=== PATIENT | male | born 1980 | race Caucasian/White ===

== ENCOUNTER → 2024-11-27 | Day surgery (SDC) | payer OTHER ==
[~2024-11-27] MED LIST: FERRITIN PO; FISH OIL 1,001000 M1 PO; GLUCAGON FOR INJ 1 MG VIAL ONE; HYOSCYAMINE SULFATE 0.5 MG/ML INJ ONE; KETAMINE HCL INJ 50 MG/ML 10 ML VIAL ONE; LIDOCAINE HCL 2% LOCAL INJ 5 ML SDV VIAL INJ ONE; MULTI-VITAMIN1 EACH PO; OLMESARTAN MEDO40 MG PO; PROPOFOL IV EMULSION 10 MG/ML 20 ML VIAL ONE; SEMAGLUTID0.25 MG/0. SC
[2024-11-27] MEDS: LACTATED RINGER'S 1,000 ML ONE (05:58)
[2024-11-27 07:47] VITALS: TEMP 97.8
[2024-11-27 08:00] VITALS: BP 126/88; PULSE 90; RESP 15; O2SAT 97
== END | disposition home or self-care (01) ==
LOC: OR 05:27
PROVIDERS: ATTEND Internal Medicine Gastroenterology
DX: Z12.11 Encounter for screening for malignant neoplasm of colon (principal); D12.3 Benign neoplasm of transverse colon; D12.4 Benign neoplasm of descending colon; K64.8 Other hemorrhoids; I10 Essential (primary) hypertension; Z71.89 Other specified counseling; Z01.810 Encounter for preprocedural cardiovascular examination; Z79.85 Long-term (current) use of injectable non-insulin antidiabetic drugs; Z79.899 Other long term (current) drug therapy; Z68.30 Body mass index [BMI] 30.0-30.9, adult; Z71.3 Dietary counseling and surveillance; Z80.0 Family history of malignant neoplasm of digestive organs
CPT/HCPCS: 45385; 93005; J1610; J1980; J2003; J2704; J7121; 45378